=== PATIENT | female | born 1940 | race Two or more races ===

== ENCOUNTER 2017-11-09 11:31 | Outpatient (CLI) | payer MEDICARE ==
--- NOTE | 2017-11-09 15:05 | Diagnostic Imaging Report ---
Indication: Dyspnea Comparison: None 2 views of the chest obtained. Interstitium of the lung is prominent. Heart is mildly enlarged. Note that the film was reversed in terms of left and right. Bones are osteopenic. Aorta is calcified. IMPRESSION: Prominent pulmonary interstitium nonspecific.
== END 2017-11-09 13:31 | disposition home or self-care (01) ==
LOC: RAD 11:31
DX: R05 Cough (principal); I51.7 Cardiomegaly; M85.80 Other specified disorders of bone density and structure, unspecified site
CPT/HCPCS: 71020

== ENCOUNTER 2017-12-09 10:51 | Outpatient (CLI) | payer MEDICARE, OTHER ==
--- NOTE | 2017-12-09 12:39 | Diagnostic Imaging Report ---
Indication: Cough Technique: 2 views of the chest Comparison: 11/09/2017 Findings: Borderline increased interstitial prominence is unchanged. Lungs and pleural spaces otherwise clear. Heart size is normal. There is thoracic scoliotic deformity Impression: Borderline increased interstitial prominence, may be on the basis of COPD changes. No definite acute abnormality
== END 2017-12-09 12:51 | disposition home or self-care (01) ==
LOC: RAD 10:51
DX: R05 Cough (principal)
CPT/HCPCS: 71046